=== PATIENT | female | born 1990 | race Two or more races ===

== ENCOUNTER 2022-07-18 16:20 | Inpatient (IN) ==
[2022-07-18] MEDS ORDERED: OXYTOCIN 30 UNITS/500 ML BAG IV PRN (16:50)
[2022-07-18] MEDS ORDERED: LIDOCAINE 1% LOCAL 20 ML VIAL INFIL PRN (16:50)
--- NOTE | 2022-07-18 16:56 | History & Physical Report ---
Date of Service July 18, 2022 Assessment & Plan (1) 39 weeks gestation of : Plan: Admit, routine labs, third trimester HIV and syphilis Misoprostol 25 mcg sublingual every 4 hours Plan to start Pit when cervix has been softened and right bend Epidural if patient requests Anticipate spontaneous vaginal delivery (2) Rupture of membranes with clear amniotic fluid: (3) Rubella non-immune status, antepartum: Plan: MMR (4) Uterine fibroid during , antepartum: History of Present Illness Chief Complaint: [facility] Primary Care Provider: Nayan Subramanian MD Patient is a 32-year-old G1, P0 at 39 weeks and 1 day dated by last menstrual period consistent with 11-week ultrasound who presents with a complaint of leaking of fluid since approximately 1 to 2 PM. Notes she had mucus-like discharge earlier that day, then had ongoing gushes of fluid from approximately 1 to 2 PM. Is continued to leak fluid since. Has had 1 contraction. Denies vaginal bleeding. Notes good movement. Denies headache, blurry vision, right upper quadrant or epigastric pain. Otherwise feeling well complicated by uterine fibroid in , rubella nonimmune status, vitamin D deficiency, and chronic urticaria Allergies Allergy/AdvReac Type Severity Reaction Status Date / Time No Known Allergies Allergy Unverified 05/28/19 06:25 Home Medications Medication Instructions Recorded Confirmed Type No Known Home Medications 05/28/19 05/28/19 History Patient History Medical History (Updated 07/18/22 @ 16:55 by Gila Kim MD, PhD) No acute medical problems Surgical History No pertinent past surgical history Social History Smoking Status: Never smoker Hx Alcohol Use: No Hx Substance Use: No marital status: Current Living Situation: Spouse current occupational status: employed Feels Safe at Home: Yes OB History [employer] History See record Review of Systems All systems reviewed & are unremarkable except as noted in HPI & below Physical Exam Constitutional: WD/WN, vitals as above Respiratory: normal respiratory effort, lungs clear to auscultation Cardiovascular: RRR, no murmur, no edema Gastrointestinal (Abdomen): normal bowel sounds, soft, nontender, no hepatosplenomegaly Genitourinary: no vaginal lesions, no adnexal mass OB Exam Abdomen: + vertex Grossly ruptured on exam, positive ferning Cervix: Fingers tip/50/-3 anterior and soft Results & Data Vital Signs (Past 12 Hours) Vital Signs Pulse BP 07/18/22 16:38 71 108/66 Monitoring External Monitor heart tracing: Baseline 120, moderate variability, positive accelerations, no decelerations, category 1 tracing Tocodynamometer Irregular contractions
[2022-07-18] MEDS: miSOPROStoL 25 MCG TAB SL SCH ×2 (17:22→22:47)
[2022-07-18 17:27] LABS: Hematocrit (blood only) 36.5 % (37.0-47.0); Mean Corpuscular Hgb Conc 32.9 g/dL (32.0-36.0); Platelet Count 170 K/uL (130-400); RDW Coefficient of Variation 13.9 % (11.5-14.5); Red Blood Count 4.62 M/uL (4.20-5.40); White Blood Count 9.74 K/ul (4.8-10.8)
[2022-07-18] MEDS: LACTATED RINGER'S 1,000 ML IV PRN ×2 (21:50→22:51)
[2022-07-18] MEDS ORDERED: ePHEDrine sulfate 50 MG/ML AMP ONE (21:50)
[2022-07-18] MEDS ORDERED: fentaNYL citrate PF 100 MCG/2 ML VIAL ONE (21:50)
[2022-07-18] MEDS ORDERED: BUPIVACAINE 0.25% PF 30 ML VIAL ONE (21:51)
[2022-07-18] MEDS ORDERED: fentaNYL 2MCG/ML ROPIVACAINE 1.25MG/ML 100 ML BAG EPI ONE (21:51)
[2022-07-18] MEDS ORDERED: SODIUM CHLORIDE 0.9% PF INJ 10 ML VIAL ONE (21:51)
[2022-07-18] MEDS ORDERED: LIDOCAINE 2%/EPINEPHRINE 1:200,000 20 ML PF ONE (21:51)
--- NOTE | 2022-07-18 21:51 | Labor Progress Brief Note ---
Date of Service July 18, 2022 Subjective Patient stating to nursing staff have that pain in 4-5 out of 10 Assessment & Plan (1) 39 weeks gestation of : Plan: Misoprostol 25 mcg x1 dose, will give a second dose at this time Plan to start Pit when cervix has been softened and ripened Epidural if patient requests Anticipate spontaneous vaginal delivery (2) Rupture of membranes with clear amniotic fluid: (3) Rubella non-immune status, antepartum: Plan: MMR (4) Uterine fibroid during , antepartum: Admission and Anticipated Discharge Date Admission Date: July 18, 2022 Physical Exam Physical Exam: heart tracing: Baseline 120, moderate variability, positive accelerations, no Decelerations, category 1 tracing Tocometer: Irregular contractions Cervical exam: Deferred Results & Data Vital Signs (Past 12 Hours) Vital Signs Temp Pulse Resp BP 07/18/22 19:32 36.7 C 18 07/18/22 18:10 37.1 C 07/18/22 17:06 37.0 C 18 07/18/22 19:31 63 109/64 07/18/22 16:38 71 108/66
[2022-07-19] MEDS: LACTATED RINGER'S 1,000 ML IV PRN (01:43)
[2022-07-19] MEDS ORDERED: diphenhydrAMINE 50 MG/ML VIAL IV PRN (01:45)
[2022-07-19] MEDS ORDERED: ONDANSETRON INJ 2 MG/ML 2 ML VIAL IV PRN (01:45)
[2022-07-19] MEDS ORDERED: ePHEDrine sulfate 50 MG/ML AMP IV PRN (01:45)
[2022-07-19] MEDS ORDERED: NALBUPHINE HCL INJ 10 MG/ML AMP IV PRN (01:45)
[2022-07-19] MEDS ORDERED: NALOXONE HCL 0.4 MG/1 ML VIAL/CARP IV PRN (01:45)
[2022-07-19] MEDS ORDERED: NALOXONE HCL 1 MG in SODIUM CHLORIDE 0.9% 1000ML 1,000 ML IV PRN (01:45)
[2022-07-19] MEDS ORDERED: fentaNYL 2MCG/ML ROPIVACAINE 1.25MG/ML 100 ML BAG EPI PRN (01:45)
--- NOTE | 2022-07-19 05:37 | Labor Progress Brief Note ---
Date of Service July 19, 2022 Subjective Patient comfortable with epidural at this time Assessment & Plan (1) 39 weeks gestation of : Plan: Patient had only received misoprostol 25 mcg x 2 doses. Not currently on oxytocin Is grabiel every 2 minutes on her own Anticipate spontaneous vaginal delivery (2) Rupture of membranes with clear amniotic fluid: (3) Rubella non-immune status, antepartum: Plan: MMR (4) Uterine fibroid during , antepartum: Admission and Anticipated Discharge Date Admission Date: July 18, 2022 Physical Exam Physical Exam: heart tracing: Baseline was related was preferred Koebel variability, positive accelerations, variable decelerations, several late, category 2 tracing Tocometer: Contractions every 2 minutes Cervix: Anterior lip/100/+2 Results & Data Vital Signs (Past 12 Hours) Vital Signs Temp Pulse Resp BP Pulse Ox 07/18/22 19:32 36.7 C 18 07/18/22 18:10 37.1 C 07/19/22 05:32 107 H 99 07/19/22 05:31 67 112/64 07/19/22 05:27 66 97 07/19/22 05:22 64 98 07/19/22 05:19 74 88/54 L 07/19/22 05:17 62 98 07/19/22 05:12 65 99 07/19/22 05:09 67 93/52 L 07/19/22 05:07 62 98 07/19/22 05:02 68 99 07/19/22 05:00 62 18 86/48 L 07/19/22 04:57 58 L 98 07/19/22 04:52 66 98 07/19/22 04:51 60 87/52 L 07/19/22 04:47 61 99 07/19/22 04:30 18 07/19/22 04:30 18 07/19/22 04:42 63 100 07/19/22 04:40 36.7 C 07/19/22 04:39 71 96/51 L 07/19/22 04:37 78 98 07/19/22 04:32 71 99/62 L 99 07/19/22 04:27 73 97 07/19/22 04:22 73 98 07/19/22 04:17 74 97 07/19/22 04:12 72 97 07/19/22 04:07 76 97 07/19/22 04:02 73 97 07/19/22 03:57 75 98 07/19/22 03:53 73 105/61 07/19/22 03:52 77 100 07/19/22 03:47 78 99 07/19/22 03:48 81 104/60 07/19/22 03:42 98 07/19/22 03:42 76 07/19/22 03:42 78 105/63 07/19/22 03:38 85 108/66 07/19/22 03:37 76 98 07/19/22 03:33 76 108/58 L 07/19/22 03:32 91 H 98 07/19/22 03:27 75 105/56 L 98 07/19/22 03:23 85 111/59 L 07/19/22 03:22 76 98 07/19/22 03:17 83 111/60 99 07/19/22 03:12 83 99 07/19/22 03:13 78 112/59 L 07/19/22 03:00 18 07/19/22 03:00 18 07/19/22 03:07 100 07/19/22 03:07 86 07/19/22 03:07 90 117/69 07/19/22 03:03 100 H 115/72 07/19/22 03:02 84 100 07/19/22 02:59 83 108/59 L 07/19/22 02:57 94 H 100 07/19/22 02:52 90 100 07/19/22 02:49 85 118/68 07/19/22 02:47 79 100 07/19/22 02:30 18 07/19/22 02:30 18 07/19/22 02:42 73 75/55 L 100 07/19/22 02:37 69 100 07/19/22 02:38 72 94/51 L 07/19/22 02:32 78 110/56 L 100 07/19/22 02:27 71 102/52 L 100 07/19/22 02:22 69 100 07/19/22 02:23 68 107/59 L 07/19/22 02:17 65 102/57 L 100 07/19/22 02:12 68 103/56 L 99 07/19/22 02:07 100 07/19/22 02:07 68 07/19/22 02:07 67 103/56 L 07/19/22 02:00 18 07/19/22 02:00 18 07/19/22 02:02 99 07/19/22 02:02 74 07/19/22 02:02 79 101/54 L 07/19/22 01:57 70 101/51 L 99 07/19/22 01:52 65 102/56 L 100 07/19/22 01:48 65 105/54 L 07/19/22 01:00 18 07/19/22 01:00 18 07/19/22 01:47 64 100 07/19/22 01:45 36.6 C 07/19/22 01:42 100 07/19/22 01:42 69 07/19/22 01:42 62 114/56 L 07/19/22 01:40 59 L 116/56 L 07/19/22 01:38 62 112/55 L 07/19/22 01:37 60 100 07/19/22 01:36 55 L 125/62 07/19/22 01:34 60 95/52 L 07/19/22 01:32 100 07/19/22 01:32 58 L 07/19/22 01:32 61 88/52 L 07/19/22 01:30 56 L 20 87/50 L 07/19/22 01:27 56 L 100 07/19/22 01:28 57 L 88/52 L 07/19/22 01:26 57 L 94/52 L 07/19/22 01:23 59 L 91/45 L 07/19/22 01:22 57 L 100 07/19/22 01:17 57 L 100 07/19/22 01:12 60 100 07/19/22 01:08 61 95/58 L 07/19/22 01:07 61 99 07/19/22 01:02 63 100 07/19/22 00:57 61 100 07/19/22 00:52 63 96/53 L 100 07/19/22 00:47 61 99 07/19/22 00:42 66 100 07/19/22 00:37 63 90/51 L 99 07/19/22 00:30 18 07/19/22 00:30 18 07/19/22 00:32 63 100 07/19/22 00:27 65 99 07/19/22 00:23 65 96/53 L 07/19/22 00:22 57 L 99 07/19/22 00:17 74 100 07/19/22 00:12 66 100 07/19/22 00:07 65 100 07/19/22 00:08 144 H 100/54 L 07/19/22 00:00 18 07/19/22 00:00 18 07/19/22 00:02 73 100 07/18/22 23:57 61 100 07/18/22 23:52 69 93/55 L 100 07/18/22 23:47 75 100 07/18/22 23:42 79 100 07/18/22 23:30 18 07/18/22 23:30 18 07/18/22 23:39 66 101/54 L 07/18/22 23:37 72 100 07/18/22 23:32 60 100 07/18/22 23:27 60 100 07/18/22 23:22 78 100 07/18/22 23:23 76 85/50 L 07/18/22 23:17 60 100 07/18/22 23:12 67 100 07/18/22 23:07 100 07/18/22 23:07 61 07/18/22 23:07 59 L 104/55 L 07/18/22 23:02 62 100 07/18/22 22:30 18 07/18/22 22:30 18 07/18/22 22:55 18 07/18/22 22:55 18 07/18/22 23:00 72 120/59 L 07/18/22 22:57 63 100 07/18/22 22:56 69 98/57 L 07/18/22 22:52 75 100 07/18/22 22:51 82 90/58 L 07/18/22 22:47 68 100 07/18/22 22:45 82 88/54 L 07/18/22 22:42 72 100 07/18/22 22:40 73 18 96/53 L 07/18/22 22:37 79 100 07/18/22 22:35 76 20 104/63 07/18/22 22:32 73 100 07/18/22 22:33 73 104/59 L 07/18/22 22:31 73 100/58 L 07/18/22 22:29 74 108/59 L 07/18/22 22:27 71 100 07/18/22 22:26 73 123/66 07/18/22 22:22 79 100 07/18/22 22:17 82 100 07/18/22 22:12 79 100 07/18/22 22:07 64 100 07/18/22 22:02 68 100 07/18/22 21:57 77 99 07/18/22 21:54 68 113/71 07/18/22 19:31 63 109/64
[2022-07-19] MEDS ORDERED: ACETAMINOPHEN 325 MG TAB PO PRN (07:51)
[2022-07-19] MEDS ORDERED: BENZOCAINE 20% AER SPR 82.5 GM CAN EXT PRN (07:51)
[2022-07-19] MEDS ORDERED: OXYTOCIN 30 UNITS/500 ML BAG IV PRN (07:51)
[2022-07-19] MEDS ORDERED: bisacodyL 10 MG SUPP PR PRN (07:51)
[2022-07-19] MEDS ORDERED: HYDROCORTISONE ACETATE 25 MG SUPP PR PRN (07:51)
[2022-07-19] MEDS ORDERED: DIPHTHERIA/TETANUS/PERTUSSIS 0.5mL SYR/VIAL (Age 7+yrs) IM ONE (07:51)
--- NOTE | 2022-07-19 07:52 | Delivery Summary ---
Vaginal Delivery Summary Date of Service July 19, 2022 Vaginal Delivery Summary Delivery Note History synopsis: Patient is a 32-year-old G1, P0 admitted at 39 weeks and 1 day for spontaneous rupture of membranes, and was fingertip on exam. She received 2 doses of misoprostol 25 mcg sublingually and progressed to 1 cm. During that time she received an epidural for pain control. She continued to make cervical changes found to be an anterior lip, approximately 515 this morning. She then progressed to complete and pushed with nursing and I was called for delivery Delivery Summary: Patient was placed in the dorsal lithotomy position. She was prepped and draped in the usual sterile fashion. Upon maternal pushing the head was delivered atraumatically followed by the anterior shoulders, posterior shoulders then the remainder of the infants body. The infant was immediately placed on mother's abdomen, dried and stimulated. Delayed cord clamping for 60 seconds was performed. The infants mouth and nose were bulb suctioned by nursing staff. A female was delivered at 0738, weight pending with APGARS of 8 at 1 minute and 9 at 5 minutes. The was handed off to the awaiting nursing staff. Cord blood gases were (not) obtained. The placenta delivered intact with three vessel cord at 0746. Placenta was sent to pathology (hold). Thirty units of Pitocin were added to the IV fluid and allowed to run freely. Uterine massage was performed until uterus was deemed firm. Upon inspection of the perineum, cervix were intact. Second degree laceration was noted which was repaired with 3-0 vicryl in the usual fashion. Upon re-inspection the patient was hemostatic. Uterus again massaged and found to be firm. Needle and sponge counts were correct. Patient was stable and allowed to recover in L&D room. was stable and remained in room with mother in the labor and delivery unit.
--- NOTE | 2022-07-19 09:52 | Anesthesia Procedure Note ---
Date of Service July 19, 2022 Anesthesia Post Epidural Note Vital Signs Vital Signs: Temp Pulse Resp BP Pulse Ox 36.7 C 83 18 90/54 L 98 07/19/22 05:52 07/19/22 09:30 07/19/22 07:00 07/19/22 09:30 07/19/22 07:47 Notes Mental Status: alert / awake / arousable Nausea / Vomiting: adequately controlled Pain: adequately controlled Airway Patency, RR, SpO2: stable & adequate BP & HR: stable & adequate Hydration State: stable & adequate Neuraxial Anesthesia: was administered and sensory block is resolving Anesthetic Complications: no major complications apparent and Pt Satisfied with anesthetic care Epidural: Removed without complications and With tip intact
[2022-07-19] MEDS: IBUPROFEN 600 MG TAB PO PRN ×2 (14:45→20:23)
[2022-07-19] MEDS: DOCUSATE SODIUM 100 MG CAP PO SCH ×2 (19:15→20:23)
[2022-07-19] MEDS: PRENATAL VITAMIN 1 TAB PO SCH (19:15)
[2022-07-20] MEDS: IBUPROFEN 600 MG TAB PO PRN ×2 (00:46→11:05)
[2022-07-20] MEDS: miSOPROStoL 25 MCG TAB SL SCH (06:46)
[2022-07-20 06:53] LABS: Hematocrit (blood only) 31.9 % (37.0-47.0); Hemoglobin 10.5 g/dl (12.0-16.0); Mean Corpuscular Hgb Conc 32.9 g/dL (32.0-36.0); Mean Platelet Volume 11.2 fL (9.4-12.4); Platelet Count 156 K/uL (130-400); RDW Coefficient of Variation 13.9 % (11.5-14.5); RDW Standard Deviation 39.5 fL (36.4-46.3); Red Blood Count 4.04 M/uL (4.20-5.40); White Blood Count 11.08 K/ul (4.8-10.8)
[2022-07-20] MEDS: PRENATAL VITAMIN 1 TAB PO SCH (08:28)
[2022-07-20] MEDS: DOCUSATE SODIUM 100 MG CAP PO SCH ×2 (08:28→20:39)
--- NOTE | 2022-07-20 11:18 | Obstetrical Progress Note ---
Date of Service July 20, 2022 Assessment & Plan Admission and Anticipated Discharge Date Admission Date: July 18, 2022 Subjective Patient is seen and examined. She feels well, no complaints. Ambulating without dizziness Voiding without difficulty Tolerating regular diet with out N&V Bleeding is minimal No fever/ chills/ CP/ SOB/ N&V/ Leg pain Breast feeding without problems Vital Signs Temp Pulse Resp BP Pulse Ox O2 Del Method 07/20/22 08:15 36.4 C L 61 16 101/64 99 Room Air 07/20/22 03:55 76 16 91/54 L 99 Room Air 07/19/22 23:55 36.6 C 67 18 102/64 99 Room Air Lab Results 07/18/22 07/18/22 07/18/22 Range/Units 17:02 17:04 17:04 WBC 9.74 (4.8-10.8) K/ul RBC 4.62 (4.20-5.40) M/uL Hgb 12.0 (12.0-16.0) g/dl Hct 36.5 L (37.0-47.0) % MCV 79.0 L (80.0-100.0) fL MCH 26.0 (25.0-34.0) pg MCHC 32.9 (32.0-36.0) g/dL RDW Std Deviation 39.0 (36.4-46.3) fL RDW Coeff of Jodee 13.9 (11.5-14.5) % Plt Count 170 (130-400) K/uL MPV 11.0 (9.4-12.4) fL RPR (Nonreactive) HIV (1&2) Ag & Ab Conf (NON-REACTIVE) SARS-CoV-2, RNA, NAAT NEGATIVE (NEGATIVE) Blood Type O Positive Antibody Screen NEGATIVE 07/18/22 07/18/22 07/20/22 Range/Units 17:04 17:04 06:12 WBC 11.08 H (4.8-10.8) K/ul RBC 4.04 L (4.20-5.40) M/uL Hgb 10.5 L (12.0-16.0) g/dl Hct 31.9 L (37.0-47.0) % MCV 79.0 L (80.0-100.0) fL MCH 26.0 (25.0-34.0) pg MCHC 32.9 (32.0-36.0) g/dL RDW Std Deviation 39.5 (36.4-46.3) fL RDW Coeff of Jodee 13.9 (11.5-14.5) % Plt Count 156 (130-400) K/uL MPV 11.2 (9.4-12.4) fL RPR Nonreactive (Nonreactive) HIV (1&2) Ag & Ab Conf NON-REACTIVE (NON-REACTIVE) SARS-CoV-2, RNA, NAAT (NEGATIVE) Blood Type Antibody Screen PE: General: Alert, orientedx3, NAD Abd: soft, NT, fundus firm, below Umbilicus Perineum intact, Lochia rubra minimal Ext; NT, no edema AP: 32 yo s/p , ppd# 1 VSS Afebrile doing well Continue routine care All questions were answered D/C home tomorrow Results & Data Vital Signs (Past 12 Hours) Vital Signs Temp Pulse Resp BP Pulse Ox O2 Del Method 07/20/22 08:15 36.4 C L 61 16 101/64 99 Room Air 07/20/22 03:55 76 16 91/54 L 99 Room Air 07/19/22 23:55 36.6 C 67 18 102/64 99 Room Air
[2022-07-20] MEDS ORDERED: bisacodyL 5 MG TABEC PO SCH (20:00)
[2022-07-21] MEDS ORDERED: MEASLES, MUMPS & RUBELLA VIRUS VIAL SQ ONE (00:01)
[2022-07-21] MEDS: IBUPROFEN 600 MG TAB PO PRN (08:17)
[2022-07-21] MEDS: DOCUSATE SODIUM 100 MG CAP PO SCH (08:17)
[2022-07-21] MEDS: PRENATAL VITAMIN 1 TAB PO SCH (08:17)
[2022-07-21 09:23] LABS: Hematocrit (blood only) 35.4 % (37.0-47.0); Hemoglobin 11.6 g/dl (12.0-16.0)
--- NOTE | 2022-07-21 09:50 | Obstetrical Progress Note ---
Date of Service July 21, 2022 Assessment & Plan Admission and Anticipated Discharge Date Admission Date: July 18, 2022 Subjective Patient is seen and examined. She feels well, no complaints. Ambulating without dizziness Voiding without difficulty Tolerating regular diet with out N&V Bleeding is minimal No fever/ chills/ CP/ SOB/ N&V/ Leg pain Breast feeding without problems Vital Signs Temp Pulse Resp BP Pulse Ox O2 Del Method 07/21/22 08:10 36.8 C 65 16 104/66 Room Air 07/21/22 08:35 36.8 C 65 18 104/66 98 Room Air 07/20/22 23:30 36.7 C 87 18 105/69 98 Room Air 07/20/22 20:00 36.8 C 78 16 107/68 99 Room Air 07/20/22 15:30 36.7 C 64 18 107/73 99 Room Air 07/20/22 12:00 36.7 C 77 18 110/76 99 Room Air Lab Results 07/18/22 07/18/22 07/18/22 Range/Units 17:02 17:04 17:04 WBC 9.74 (4.8-10.8) K/ul RBC 4.62 (4.20-5.40) M/uL Hgb 12.0 (12.0-16.0) g/dl Hct 36.5 L (37.0-47.0) % MCV 79.0 L (80.0-100.0) fL MCH 26.0 (25.0-34.0) pg MCHC 32.9 (32.0-36.0) g/dL RDW Std Deviation 39.0 (36.4-46.3) fL RDW Coeff of Jodee 13.9 (11.5-14.5) % Plt Count 170 (130-400) K/uL MPV 11.0 (9.4-12.4) fL RPR (Nonreactive) HIV (1&2) Ag & Ab Conf (NON-REACTIVE) SARS-CoV-2, RNA, NAAT NEGATIVE (NEGATIVE) Blood Type O Positive Antibody Screen NEGATIVE 07/18/22 07/18/22 07/20/22 Range/Units 17:04 17:04 06:12 WBC 11.08 H (4.8-10.8) K/ul RBC 4.04 L (4.20-5.40) M/uL Hgb 10.5 L (12.0-16.0) g/dl Hct 31.9 L (37.0-47.0) % MCV 79.0 L (80.0-100.0) fL MCH 26.0 (25.0-34.0) pg MCHC 32.9 (32.0-36.0) g/dL RDW Std Deviation 39.5 (36.4-46.3) fL RDW Coeff of Jodee 13.9 (11.5-14.5) % Plt Count 156 (130-400) K/uL MPV 11.2 (9.4-12.4) fL RPR Nonreactive (Nonreactive) HIV (1&2) Ag & Ab Conf NON-REACTIVE (NON-REACTIVE) SARS-CoV-2, RNA, NAAT (NEGATIVE) Blood Type Antibody Screen 07/21/22 Range/Units 09:03 WBC (4.8-10.8) K/ul RBC (4.20-5.40) M/uL Hgb 11.6 L (12.0-16.0) g/dl Hct 35.4 L (37.0-47.0) % MCV (80.0-100.0) fL MCH (25.0-34.0) pg MCHC (32.0-36.0) g/dL RDW Std Deviation (36.4-46.3) fL RDW Coeff of Jodee (11.5-14.5) % Plt Count (130-400) K/uL MPV (9.4-12.4) fL RPR (Nonreactive) HIV (1&2) Ag & Ab Conf (NON-REACTIVE) SARS-CoV-2, RNA, NAAT (NEGATIVE) Blood Type Antibody Screen PE: General: Alert, orientedx3, NAD Abd: soft, NT, fundus firm, below Umbilicus Perineum intact, Lochia rubra minimal Ext; NT, no edema AP: 32 yo s/p , ppd# 2 VSS Afebrile doing well Continue routine care All questions were answered Discussed when to call D/C home, f/u in office Results & Data Vital Signs (Past 12 Hours) Vital Signs Temp Pulse Resp BP Pulse Ox O2 Del Method 07/21/22 08:10 36.8 C 65 16 104/66 Room Air 07/21/22 08:35 36.8 C 65 18 104/66 98 Room Air 07/20/22 23:30 36.7 C 87 18 105/69 98 Room Air
--- NOTE | 2022-07-24 20:56 | Anesthesiology Consultation ---
Date of Service July 18, 2022 Assessment & Plan Chart Review Chart Review: Patient NOT seen in Pre Admission Testing and Acceptable Risk for Labor Epidural Consults Requested none ASA ASA2 Proposed Anesthesia Anesthesia Type: Labor Epidural Risk / Benefits Reviewed With: PT / POA / Parent / Guardian, Accepts Plan and Informed Consent Obtained History Height/Weight Height: 5 ft 1 in Weight: 67.132 kg Allergies Allergy/AdvReac Type Severity Reaction Status Date / Time No Known Allergies Allergy Verified 07/18/22 17:29 Medications Home Medications Medication Instructions Recorded Confirmed Last Taken [id number] 1 mg 1 tab PO DAILY 07/18/22 07/18/22 07/18/22 tablet ibuprofen 600 mg tablet 600 mg PO Q4H PRN pain #40 tabs 07/20/22 Unknown vits no.124-ferrous fum 1 tab PO DAILY@08 #90 tabs 07/20/22 Unknown 27 mg iron-folic acid 800 mcg tablet ( Vitamin) Past Medical History Medical History (Updated 07/18/22 @ 18:06 by Idalia Keith RN) Chronic urticaria follows dermatology Fibroid, uterine History of COVID-19 04/23 and 11/22 No acute medical problems Vitamin D deficiency Exercise / Class Metabolic Activity II 4-5 Yardwork/Stairs/Walk up hill Past Surgical History Surgical History No pertinent past surgical history Past Anesthesia History No Hx of Anesthesia Complications and No Family Hx of Anesthesia Complications History of PONV No Hx of PONV and No Hx of Motion Sickness Social History Smoking Status: Never smoker Hx Alcohol Use: No Hx Substance Use: No substance use type: does not use Physical Exam Vital Signs Last Vital Signs Temp 36.8 C 07/21/22 10:02 Pulse 65 07/21/22 10:02 Resp 18 07/21/22 10:02 BP 104/66 07/21/22 10:02 Pulse Ox 98 07/21/22 10:02 O2 Del Method Room Air 07/21/22 08:35 ENMT Mouth: no dentition abnormality Thyromental Distance: > or= 3.5 Finger Breadths Mallampati Class: II Neck normal visual inspection Respiratory normal respiratory effort Auscultation: lungs clear to auscultation bilaterally Cardiovascular Rate/Rhythm: regular rate and regular rhythm Psychiatric Orientation: alert Testing Laboratory Results 07/21/22 09:03 Blood Type O Positive 07/18/22 17:04 Antibody Screen NEGATIVE 07/18/22 17:04
== END 2022-07-21 11:58 | disposition home or self-care (01) | DRG 807 ==
LOC: OPB 16:20 → 4S1 16:23 → 4E2 07-19 12:40